=== PATIENT | female | born 1960 | race Caucasian/White ===

== ENCOUNTER 2022-07-30 07:46 | Day surgery (SDC) | payer MEDICARE, OTHER ==
[2022-07-29 13:39] LABS: COVID AG,FIA SOURCE NASAL SWAB
[~2022-07-30] VITALS: Ht 157.5 cm; Wt 113.6 kg
[~2022-07-30 07:46] MED LIST: ALBU8.5H8 IH; ATOR10TA69 PO; CLOP75TA32 PO; FAMO20TA8 PO; FLUT16H NASAL; LEVO75 PO; MONT-40 PO; SERT-440 PO; SODIUM CHLORIDE 0.9% 1,000 ML IV ONE; UMEC62.5 IH
[2022-07-30] MEDS ORDERED: PROPOFOL 1% 20 ML VIAL IVP ONE ×2 (07:47→12:00)
[2022-07-30] MEDS ORDERED: SODIUM CHLORIDE 0.9% 1,000 ML ONE ×2 (08:25→08:51)
[2022-07-30] MEDS ORDERED: OXYGEN THERAPY IH SCH (20:00)
== END 2022-07-30 11:12 | disposition home or self-care (01) ==
LOC: SURGERY 07:46
PROVIDERS: ATTEND Specialist
DX: Z12.11 Encounter for screening for malignant neoplasm of colon (principal); R10.13 Epigastric pain; K92.0 Hematemesis; D12.2 Benign neoplasm of ascending colon; D12.8 Benign neoplasm of rectum; K29.50 Unspecified chronic gastritis without bleeding; B96.81 Helicobacter pylori [H. pylori] as the cause of diseases classified elsewhere; E10.9 Type 1 diabetes mellitus without complications; E03.9 Hypothyroidism, unspecified; J44.9 Chronic obstructive pulmonary disease, unspecified; F32.A Depression, unspecified; Z20.822 Contact with and (suspected) exposure to COVID-19; Z79.899 Other long term (current) drug therapy; Z86.73 Personal history of transient ischemic attack (TIA), and cerebral infarction without residual deficits; Z90.49 Acquired absence of other specified parts of digestive tract; Z98.890 Other specified postprocedural states; Z99.81 Dependence on supplemental oxygen; Z80.9 Family history of malignant neoplasm, unspecified
CPT/HCPCS: 87426; 45385; 43239; 88305; 88312; 88313; C9803; C1769; J2704; J7030